=== PATIENT | female | born 1940 | race Caucasian/White ===

== ENCOUNTER → 2017-11-25 09:16 | Outpatient (CLI) | payer MEDICARE, BC, SELFPAY ==
[2017-11-25 13:49] LABS: ALB/GLOB Ratio 0.9 RATIO (0.9-2.4); AST(SGOT) 19 U/L (15-37); Absolute Lymphocyte Count 1.15 X10^3/ul (0.83-4.51); Absolute Neutrophil Count 4.4 X10^3/uL (2.0-7.7); Alanine Aminotransfer ALT/SGPT 25 U/L (13-56); Albumin, Serum 3.2 g/dL (3.2-5.0); Alkaline Phosphatase 77 U/L (45-117); Anion Gap 5 (5-15); BUN 14 mg/dL (7-18); BUN/Creat Ratio 18.8 RATIO (10-20); Basophil# 0.03 X10^3/uL; Basophil% 0.5 % (0-1); Chloride 102 mmol/L (98-107); Creatinine, Serum 0.74 mg/dL (0.55-1.02); EST Glomerular Filtration Rate 80 mL/min (>60); Eosinophils% 1.5 % (0-5); Est Glom Filt Rate - Afr Amer 97 mL/min (>60); Globulin 3.4 g/dL (2.2-4.2); Glucose 62 mg/dL (74-106); Hematocrit 40.9 % (37-47); Hemoglobin 13.1 g/dl (12.0-15.0); Lymphocyte # 1.15 X10^3/ul (4.0); Lymphocyte % 17.8 % (19-41); Mean Corpuscular Hgb 32.7 pg (27.0-32.0); Mean Platelet Vol. 11.4 fl (6.2-12.0); Monocyte# 0.72 X10^3/uL; Monocyte% 11.1 % (0-10); Neutrophil # 4.44 X10^3/uL (2.7-7.7); Neutrophil % 68.8 % (47-70); Platelet Count 223 K/mm3 (150-450); Potassium 4.1 mmol/L (3.5-5.1); Protein, Total 6.6 g/dL (6.4-8.2); RBC Distribution Width CV 13.4 % (11.6-14.6); RBC Distribution Width SD 49.1 fl (35.1-43.9); Red Blood Count 4.01 M/mm3 (4.2-5.4); Sodium Level 140 mmol/L (136-145); Thyroid Stim Hormone (TSH) 2.79 uIU/mL (0.358-3.74); White Blood Count 6.5 K/mm3 (4.4-11.0)
[2017-11-25 13:50] LABS: POSITIVE COUNT NO; POSITIVE DIFFERENTIAL NO; POSITIVE MORPHOLOGY NO
[2017-11-26 10:36] LABS: Vitamin D,25 Hydroxy 21.4 ng/mL (19.95-100.01)
== END ==
PROVIDERS: Family Provider Family Medicine Geriatric Medicine; PCP Family Medicine Geriatric Medicine; Visit Provider Family Medicine Geriatric Medicine
DX: R53.83 Other fatigue (principal); E55.9 Vitamin D deficiency, unspecified
CPT/HCPCS: 36415; 80053; 82306; 84443; 85025

== ENCOUNTER → 2018-05-23 15:14 | Outpatient (CLI) | payer MEDICARE, BC, SELFPAY ==
[2018-05-23 17:59] LABS: Vitamin D,25 Hydroxy 21.4 ng/mL (29.95-100.01)
[2018-05-23 18:30] LABS: Absolute Lymphocyte Count 0.92 X10^3/ul (0.83-4.51); Absolute Neutrophil Count 3.8 X10^3/uL (2.0-7.7); Basophil# 0.02 X10^3/uL; Basophil% 0.4 % (0-1); Eosinophil# 0.12 X10^3/uL; Eosinophils% 2.1 % (0-5); Hematocrit 43.4 % (37-47); Hemoglobin 13.5 g/dl (12.0-15.0); Lymphocyte # 0.92 X10^3/ul (4.0); Lymphocyte % 16.3 % (19-41); Mean Corp Hgb Conc 31.1 g/gl (32-36); Mean Corpuscular Hgb 31.3 pg (27.0-32.0); Mean Corpuscular Volume 100.7 fL (81-99); Mean Platelet Vol. 11.7 fl (6.2-12.0); Monocyte# 0.73 X10^3/uL; Monocyte% 12.9 % (0-10); Neutrophil # 3.84 X10^3/uL (2.7-7.7); Neutrophil % 68.1 % (47-70); Platelet Count 232 K/mm3 (150-450); RBC Distribution Width CV 13.7 % (11.6-14.6); RBC Distribution Width SD 51.3 fl (35.1-43.9); Red Blood Count 4.31 M/mm3 (4.2-5.4); White Blood Count 5.6 K/mm3 (4.4-11.0)
[2018-05-23 18:31] LABS: ALB/GLOB Ratio 0.8 RATIO (0.9-2.4); AST(SGOT) 15 U/L (15-37); Alanine Aminotransfer ALT/SGPT 19 U/L (13-56); Albumin, Serum 3.2 g/dL (3.2-5.0); Alkaline Phosphatase 84 U/L (45-117); Anion Gap 4 (5-15); BUN 17 mg/dL (7-18); Calcium,Total 8.9 mg/dL (8.5-10.1); Chloride 105 mmol/L (98-107); Creatinine, Serum 0.85 mg/dL (0.55-1.02); EST Glomerular Filtration Rate 69 mL/min (>60); Est Glom Filt Rate - Afr Amer 83 mL/min (>60); Glucose 55 mg/dL (74-106); Potassium 4.1 mmol/L (3.5-5.1); Protein, Total 7.2 g/dL (6.4-8.2); Sodium Level 141 mmol/L (136-145); Thyroid Stim Hormone (TSH) 2.03 uIU/mL (0.358-3.74)
[2018-05-23 18:32] LABS: Differential Indicated SCAN CRITERIA MET; POSITIVE COUNT NO; POSITIVE DIFFERENTIAL NO; POSITIVE MORPHOLOGY YES
[2018-05-23 18:46] LABS: Anisocytosis 1+; Macrocytosis 1+; Platelet Estimate ADEQUATE (ADEQ); Platelet Morphology LARGE
== END ==
PROVIDERS: Family Provider Family Medicine Geriatric Medicine; PCP Family Medicine Geriatric Medicine; Visit Provider Family Medicine Geriatric Medicine
DX: R53.83 Other fatigue (principal); E55.9 Vitamin D deficiency, unspecified
CPT/HCPCS: 36415; 80053; 82306; 84443; 85025

== ENCOUNTER → 2018-11-21 10:59 | Outpatient (CLI) | payer MEDICARE, BC, SELFPAY ==
[2018-11-21 12:42] LABS: Absolute Lymphocyte Count 1.09 X10^3/ul (0.83-4.51); Absolute Neutrophil Count 3.9 X10^3/uL (2.0-7.7); Basophil# 0.02 X10^3/uL; Basophil% 0.3 % (0-1); Eosinophil# 0.11 X10^3/uL; Eosinophils% 1.9 % (0-5); Hematocrit 43.9 % (37-47); Hemoglobin 13.6 g/dl (12.0-15.0); Lymphocyte # 1.09 X10^3/ul (4.0); Lymphocyte % 18.8 % (19-41); Mean Corpuscular Hgb 31.5 pg (27.0-32.0); Mean Corpuscular Volume 101.6 fL (81-99); Mean Platelet Vol. 11.4 fl (6.2-12.0); Monocyte# 0.71 X10^3/uL; Monocyte% 12.2 % (0-10); Neutrophil # 3.88 X10^3/uL (2.7-7.7); Neutrophil % 66.8 % (47-70); Platelet Count 256 K/mm3 (150-450); RBC Distribution Width CV 14.1 % (11.6-14.6); RBC Distribution Width SD 52.4 fl (35.1-43.9); Red Blood Count 4.32 M/mm3 (4.2-5.4); White Blood Count 5.8 K/mm3 (4.4-11.0)
[2018-11-21 12:45] LABS: POSITIVE COUNT NO; POSITIVE DIFFERENTIAL NO; POSITIVE MORPHOLOGY NO
[2018-11-21 12:57] LABS: Vitamin D,25 Hydroxy 18.2 ng/mL (29.95-100.01)
[2018-11-21 12:59] LABS: ALB/GLOB Ratio 0.9 RATIO (0.9-2.4); AST(SGOT) 15 U/L (15-37); Alanine Aminotransfer ALT/SGPT 16 U/L (13-56); Albumin, Serum 3.3 g/dL (3.2-5.0); Alkaline Phosphatase 89 U/L (45-117); Anion Gap 5 (5-15); BUN 17 mg/dL (7-18); BUN/Creat Ratio 18.9 RATIO (10-20); Calcium,Total 8.8 mg/dL (8.5-10.1); Chloride 106 mmol/L (98-107); EST Glomerular Filtration Rate 64 mL/min (>60); Est Glom Filt Rate - Afr Amer 78 mL/min (>60); Globulin 3.7 g/dL (2.2-4.2); Glucose 76 mg/dL (74-106); Potassium 4.1 mmol/L (3.5-5.1); Sodium Level 140 mmol/L (136-145); Thyroid Stim Hormone (TSH) 2.76 uIU/mL (0.358-3.74)
== END ==
PROVIDERS: Family Provider Family Medicine Geriatric Medicine; PCP Family Medicine Geriatric Medicine; Visit Provider Family Medicine Geriatric Medicine
DX: R53.83 Other fatigue (principal); E55.9 Vitamin D deficiency, unspecified
CPT/HCPCS: 36415; 80053; 82306; 84443; 85025; J7030

== ENCOUNTER → 2019-05-25 09:44 | Outpatient (CLI) | payer MEDICARE, BC, SELFPAY ==
[2018-07-08 10:32] VITALS: BMI 22.4
[2019-05-25 12:28] LABS: Absolute Lymphocyte Count 1.08 X10^3/uL (0.83-4.51); Absolute Neutrophil Count 4.8 X10^3/uL (2.0-7.7); Basophil# 0.03 X10^3/uL; Basophil% 0.4 % (0-1); Eosinophil# 0.14 X10^3/uL; Eosinophils% 2.1 % (0-5); Hematocrit 44.1 % (37-47); Lymphocyte # 1.08 X10^3/ul (4.0); Lymphocyte % 16.1 % (19-41); Mean Corp Hgb Conc 31.7 g/dL (32-36); Mean Corpuscular Hgb 32.2 pg (27.0-32.0); Mean Corpuscular Volume 101.4 fL (81-99); Mean Platelet Vol. 11.8 fl (6.2-12.0); Monocyte# 0.65 X10^3/uL; Monocyte% 9.7 % (0-10); NRBC Flagged by Analyzer 0 % (0-5); Neutrophil # 4.78 X10^3/uL (2.7-7.7); Neutrophil % 71.4 % (47-70); Platelet Count 242 K/mm3 (150-450); RBC Distribution Width CV 13.2 % (11.6-14.6); RBC Distribution Width SD 49.6 fl (35.1-43.9); Red Blood Count 4.35 M/mm3 (4.2-5.4); White Blood Count 6.7 K/mm3 (4.4-11.0)
[2019-05-25 12:57] LABS: ALB/GLOB Ratio 0.8 RATIO (0.9-2.4); AST(SGOT) 13 U/L (15-37); Alanine Aminotransfer ALT/SGPT 19 U/L (13-56); Albumin, Serum 3.3 g/dL (3.2-5.0); Alkaline Phosphatase 95 U/L (45-117); Anion Gap 5 (5-15); BUN 14 mg/dL (7-18); BUN/Creat Ratio 15.1 RATIO (10-20); Chloride 104 mmol/L (98-107); Creatinine, Serum 0.93 mg/dL (0.55-1.02); EST Glomerular Filtration Rate 62 mL/min (>60); Est Glom Filt Rate - Afr Amer 75 mL/min (>60); Globulin 3.9 g/dL (2.2-4.2); Glucose 74 mg/dL (74-106); Potassium 4.6 mmol/L (3.5-5.1); Protein, Total 7.2 g/dL (6.4-8.2); Sodium Level 140 mmol/L (136-145); Thyroid Stim Hormone (TSH) 2.31 uIU/mL (0.358-3.74)
== END ==
PROVIDERS: Family Provider Family Medicine Geriatric Medicine; PCP Family Medicine Geriatric Medicine; Visit Provider Family Medicine Geriatric Medicine
DX: R53.83 Other fatigue (principal); E55.9 Vitamin D deficiency, unspecified
CPT/HCPCS: 36415; 80053; 82306; 84443; 85025

== ENCOUNTER → 2019-11-23 11:27 | Outpatient (CLI) | payer MEDICARE, BC, SELFPAY ==
[2019-08-10 08:14] VITALS: BMI 23.1
[2019-11-23 12:29] LABS: Absolute Lymphocyte Count 0.94 X10^3/uL (0.83-4.51); Absolute Neutrophil Count 4.7 X10^3/uL (2.0-7.7); Basophil# 0.03 X10^3/uL; Basophil% 0.5 % (0-1); Eosinophil# 0.15 X10^3/uL; Eosinophils% 2.3 % (0-5); Hematocrit 40.6 % (37-47); Hemoglobin 12.8 g/dL (12.0-15.0); Lymphocyte # 0.94 X10^3/ul (4.0); Lymphocyte % 14.2 % (19-41); Mean Corp Hgb Conc 31.5 g/dL (32-36); Mean Corpuscular Hgb 31.8 pg (27.0-32.0); Mean Platelet Vol. 11.6 fl (6.2-12.0); Monocyte# 0.74 X10^3/uL; Monocyte% 11.2 % (0-10); NRBC Flagged by Analyzer 0 % (0-5); Neutrophil # 4.74 X10^3/uL (2.7-7.7); Neutrophil % 71.3 % (47-70); Platelet Count 251 K/mm3 (150-450); RBC Distribution Width CV 13.7 % (11.6-14.6); RBC Distribution Width SD 51.9 fl (35.1-43.9); Red Blood Count 4.02 M/mm3 (4.2-5.4); White Blood Count 6.6 K/mm3 (4.4-11.0)
[2019-11-23 12:39] LABS: Vitamin D,25 Hydroxy 21.5 ng/mL (29.95-100.01)
[2019-11-23 12:46] LABS: ALB/GLOB Ratio 0.9 RATIO (0.9-2.4); AST(SGOT) 19 U/L (15-37); Alanine Aminotransfer ALT/SGPT 22 U/L (13-56); Albumin, Serum 3.2 g/dL (3.2-5.0); Alkaline Phosphatase 91 U/L (45-117); Anion Gap 3 (5-15); BUN 16 mg/dL (7-18); BUN/Creat Ratio 18.6 RATIO (10-20); Calcium,Total 8.9 mg/dL (8.5-10.1); Chloride 108 mmol/L (98-107); Creatinine, Serum 0.86 mg/dL (0.55-1.02); EST Glomerular Filtration Rate 67 mL/min (>60); Est Glom Filt Rate - Afr Amer 81 mL/min (>60); Globulin 3.7 g/dL (2.2-4.2); Glucose 63 mg/dL (74-106); Potassium 4.4 mmol/L (3.5-5.1); Protein, Total 6.9 g/dL (6.4-8.2); Sodium Level 142 mmol/L (136-145); Thyroid Stim Hormone (TSH) 2.25 uIU/mL (0.358-3.74)
== END ==
PROVIDERS: PCP Family Medicine Geriatric Medicine; Visit Provider Family Medicine Geriatric Medicine
DX: E55.9 Vitamin D deficiency, unspecified (principal); R53.83 Other fatigue
CPT/HCPCS: 36415; 80053; 82306; 84443; 85025

== ENCOUNTER → 2020-05-27 10:53 | Outpatient (CLI) | payer MEDICARE, BC, SELFPAY ==
[2019-08-10 08:14] VITALS: BMI 23.1
[2020-05-27 12:33] LABS: Absolute Lymphocyte Count 1.06 X10^3/uL (0.83-4.51); Absolute Neutrophil Count 4.6 X10^3/uL (2.0-7.7); Basophil# 0.03 X10^3/uL; Basophil% 0.5 % (0-1); Eosinophil# 0.11 X10^3/uL; Eosinophils% 1.7 % (0-5); Hematocrit 40.9 % (37-47); Hemoglobin 13.3 g/dL (12.0-15.0); Lymphocyte # 1.06 X10^3/ul (4.0); Mean Corp Hgb Conc 32.5 g/dL (32-36); Mean Corpuscular Hgb 31.4 pg (27.0-32.0); Mean Corpuscular Volume 96.7 fL (81-99); Mean Platelet Vol. 11.7 fl (6.2-12.0); Monocyte# 0.78 X10^3/uL; Monocyte% 11.8 % (0-10); NRBC Flagged by Analyzer 0 % (0-5); Neutrophil # 4.61 X10^3/uL (2.7-7.7); Neutrophil % 69.7 % (47-70); Platelet Count 250 K/mm3 (150-450); RBC Distribution Width CV 14.6 % (11.6-14.6); RBC Distribution Width SD 51.4 fl (35.1-43.9); Red Blood Count 4.23 M/mm3 (4.2-5.4); White Blood Count 6.6 K/mm3 (4.4-11.0)
[2020-05-27 12:45] LABS: Vitamin D,25 Hydroxy 28.7 ng/mL
[2020-05-27 13:00] LABS: ALB/GLOB Ratio 0.8 RATIO (0.9-2.4); AST(SGOT) 15 U/L (15-37); Alanine Aminotransfer ALT/SGPT 17 U/L (13-56); Albumin, Serum 3.2 g/dL (3.2-5.0); Alkaline Phosphatase 96 U/L (45-117); Anion Gap 3 (5-15); BUN 16 mg/dL (7-18); BUN/Creat Ratio 16.5 RATIO (10-20); Calcium,Total 8.8 mg/dL (8.5-10.1); Chloride 104 mmol/L (98-107); Creatinine, Serum 0.97 mg/dL (0.55-1.02); EST Glomerular Filtration Rate 59 mL/min (>60); Est Glom Filt Rate - Afr Amer 71 mL/min (>60); Globulin 3.8 g/dL (2.2-4.2); Glucose 93 mg/dL (74-106); Potassium 4.2 mmol/L (3.5-5.1); Sodium Level 138 mmol/L (136-145); Thyroid Stim Hormone (TSH) 2.69 uIU/mL (0.358-3.74)
== END ==
PROVIDERS: PCP Family Medicine Geriatric Medicine; Visit Provider Family Medicine Geriatric Medicine
DX: R53.83 Other fatigue (principal); E55.9 Vitamin D deficiency, unspecified
CPT/HCPCS: 36415; 80053; 82306; 84443; 85025

== ENCOUNTER → 2020-11-25 10:38 | Outpatient (CLI) | payer MEDICARE, BC, SELFPAY ==
[2020-08-08 09:54] VITALS: BMI 24.0
[2020-11-25 11:05] LABS: Absolute Neutrophil Count 4.6 X10^3/uL (2.0-7.7); Basophil# 0.04 X10^3/uL; Basophil% 0.6 % (0-1); Eosinophil# 0.09 X10^3/uL; Eosinophils% 1.4 % (0-5); Hematocrit 36.1 % (37-47); Hemoglobin 10.9 g/dL (12.0-15.0); Lymphocyte % 12.8 % (19-41); Mean Corp Hgb Conc 30.2 g/dL (32-36); Mean Corpuscular Hgb 28.5 pg (27.0-32.0); Mean Corpuscular Volume 94.5 fL (81-99); Mean Platelet Vol. 10.7 fl (6.2-12.0); Monocyte% 11.2 % (0-10); NRBC Flagged by Analyzer 0 % (0-5); Neutrophil # 4.59 X10^3/uL (2.7-7.7); Neutrophil % 73.7 % (47-70); Platelet Count 283 K/mm3 (150-450); RBC Distribution Width CV 14.6 % (11.6-14.6); RBC Distribution Width SD 50.3 fl (35.1-43.9); Red Blood Count 3.82 M/mm3 (4.2-5.4); White Blood Count 6.2 K/mm3 (4.4-11.0)
[2020-11-25 11:33] LABS: Vitamin D,25 Hydroxy 16.1 ng/mL
[2020-11-25 11:46] LABS: ALB/GLOB Ratio 0.8 RATIO (0.9-2.4); AST(SGOT) 16 U/L (15-37); Alanine Aminotransfer ALT/SGPT 17 U/L (13-56); Albumin, Serum 3.2 g/dL (3.2-5.0); Alkaline Phosphatase 95 U/L (45-117); Anion Gap 3 (5-15); BUN 21 mg/dL (7-18); BUN/Creat Ratio 25.4 RATIO (10-20); Calcium,Total 8.9 mg/dL (8.5-10.1); Chloride 106 mmol/L (98-107); Creatinine, Serum 0.83 mg/dL (0.55-1.02); EST Glomerular Filtration Rate 70 mL/min (>60); Est Glom Filt Rate - Afr Amer 85 mL/min (>60); Globulin 3.8 g/dL (2.2-4.2); Glucose 83 mg/dL (74-106); Potassium 4.3 mmol/L (3.5-5.1); Sodium Level 140 mmol/L (136-145)
== END ==
PROVIDERS: PCP Family Medicine Geriatric Medicine; Visit Provider Family Medicine Geriatric Medicine
DX: E55.9 Vitamin D deficiency, unspecified (principal); R53.83 Other fatigue
CPT/HCPCS: 36415; 80053; 82306; 84443; 85025

== ENCOUNTER → 2020-12-03 11:51 | Outpatient (CLI) | payer MEDICARE, BC, SELFPAY ==
[2020-08-08 09:54] VITALS: BMI 24.0
[2020-12-03 12:28] LABS: Absolute Lymphocyte Count 0.79 X10^3/uL (0.83-4.51); Absolute Neutrophil Count 4.4 X10^3/uL (2.0-7.7); Basophil# 0.03 X10^3/uL; Basophil% 0.5 % (0-1); Eosinophil# 0.11 X10^3/uL; Eosinophils% 1.9 % (0-5); Hematocrit 35.6 % (37-47); Hemoglobin 10.5 g/dL (12.0-15.0); Lymphocyte # 0.79 X10^3/ul (4.0); Lymphocyte % 13.4 % (19-41); Mean Corp Hgb Conc 29.5 g/dL (32-36); Mean Corpuscular Hgb 28.3 pg (27.0-32.0); Mean Platelet Vol. 10.8 fl (6.2-12.0); Monocyte# 0.57 X10^3/uL; Monocyte% 9.7 % (0-10); NRBC Flagged by Analyzer 0 % (0-5); Neutrophil # 4.35 X10^3/uL (2.7-7.7); Platelet Count 264 K/mm3 (150-450); RBC Distribution Width SD 51.9 fl (35.1-43.9); RET-HE 28.9 pg (30-35); Red Blood Count 3.71 M/mm3 (4.2-5.4); Reticulocyte Count 1.89 % (0.5-1.5); White Blood Count 5.9 K/mm3 (4.4-11.0)
[2020-12-03 12:58] LABS: Vitamin B12 491 pg/mL (211-911)
[2020-12-03 13:42] LABS: Ferritin 7 ng/mL (8-252); Iron 75 ug/dL (50-170); Iron Binding Capacity,Total 429 ug/dL (250-450)
== END ==
PROVIDERS: PCP Family Medicine Geriatric Medicine; Visit Provider Family Medicine Geriatric Medicine
DX: D50.9 Iron deficiency anemia, unspecified (principal)
CPT/HCPCS: 36415; 82607; 82728; 82746; 83540; 83550; 85025; 85045

== ENCOUNTER → 2020-12-05 11:19 | Outpatient (CLI) | payer MEDICARE, BC, SELFPAY ==
[2020-08-08 09:54] VITALS: BMI 24.0
== END ==
PROVIDERS: PCP Family Medicine Geriatric Medicine; Referring Provider Family Medicine Geriatric Medicine; Visit Provider Family Medicine Geriatric Medicine
DX: D50.9 Iron deficiency anemia, unspecified (principal)
CPT/HCPCS: 82274; 83630; 87177; 87209

== ENCOUNTER → 2021-05-28 11:44 | Outpatient (CLI) | payer MEDICARE, BC, SELFPAY ==
[2021-05-28 12:46] LABS: Absolute Lymphocyte Count 2.23 X10^3/uL (0.83-4.51); Absolute Neutrophil Count 5.7 X10^3/uL (2.0-7.7); Basophil# 0.05 X10^3/uL; Basophil% 0.6 % (0-1); Eosinophils% 2.2 % (0-5); Hematocrit 44.6 % (37-47); Hemoglobin 14.5 g/dL (12.0-15.0); Lymphocyte # 2.23 X10^3/ul (0.83-4.51); Lymphocyte % 24.9 % (19-41); Mean Corp Hgb Conc 32.5 g/dL (32-36); Mean Corpuscular Hgb 29.1 pg (27.0-32.0); Mean Corpuscular Volume 89.4 fL (81-99); Mean Platelet Vol. 11.1 fl (6.2-12.0); Monocyte# 0.71 X10^3/uL; Monocyte% 7.9 % (0-10); NRBC Flagged by Analyzer 0 % (0-5); Neutrophil # 5.72 X10^3/uL (2.7-7.7); Neutrophil % 63.8 % (47-70); Platelet Count 214 K/mm3 (150-450); RBC Distribution Width CV 13.5 % (11.6-14.6); RBC Distribution Width SD 44.4 fl (35.1-43.9); Red Blood Count 4.99 M/mm3 (4.2-5.4)
[2021-05-28 13:04] LABS: Vitamin D,25 Hydroxy 32.7 ng/mL
[2021-05-28 13:21] LABS: ALB/GLOB Ratio 0.8 RATIO (0.9-2.4); AST(SGOT) 20 U/L (15-37); Alanine Aminotransfer ALT/SGPT 24 U/L (13-56); Albumin, Serum 3.1 g/dL (3.2-5.0); Alkaline Phosphatase 90 U/L (45-117); Anion Gap 2 (5-15); BUN 16 mg/dL (7-18); Calcium,Total 9.4 mg/dL (8.5-10.1); Chloride 104 mmol/L (98-107); EST Glomerular Filtration Rate 73 mL/min (>60); Est Glom Filt Rate - Afr Amer 88 mL/min (>60); Globulin 3.9 g/dL (2.2-4.2); Glucose 85 mg/dL (74-106); Potassium 4.4 mmol/L (3.5-5.1); Sodium Level 139 mmol/L (136-145); Thyroid Stim Hormone (TSH) 2.28 uIU/mL (0.358-3.74)
== END ==
PROVIDERS: PCP Family Medicine Geriatric Medicine; Visit Provider Family Medicine Geriatric Medicine
DX: E55.9 Vitamin D deficiency, unspecified (principal); R53.83 Other fatigue
CPT/HCPCS: 36415; 80053; 82306; 84443; 85025

== ENCOUNTER 2021-11-26 10:50 | Outpatient (CLI) | payer MEDICARE, BC, SELFPAY ==
[2021-11-26 12:41] LABS: Absolute Lymphocyte Count 0.91 X10^3/uL (0.83-4.51); Absolute Neutrophil Count 4.6 X10^3/uL (2.0-7.7); Basophil# 0.04 X10^3/uL; Basophil% 0.6 % (0-1); Eosinophil# 0.09 X10^3/uL; Eosinophils% 1.4 % (0-5); Hematocrit 42.2 % (37-47); Hemoglobin 13.5 g/dL (12.0-15.0); Lymphocyte # 0.91 X10^3/ul (0.83-4.51); Lymphocyte % 14.4 % (19-41); Mean Corpuscular Hgb 32.3 pg (27.0-32.0); Mean Platelet Vol. 11.6 fl (6.2-12.0); Monocyte# 0.73 X10^3/uL; Monocyte% 11.5 % (0-10); NRBC Flagged by Analyzer 0 % (0-5); Neutrophil # 4.55 X10^3/uL (2.7-7.7); Neutrophil % 71.8 % (47-70); Platelet Count 246 K/mm3 (150-450); RBC Distribution Width CV 13.7 % (11.6-14.6); RBC Distribution Width SD 50.6 fl (35.1-43.9); Red Blood Count 4.18 M/mm3 (4.2-5.4); White Blood Count 6.3 K/mm3 (4.4-11.0)
[2021-11-26 12:51] LABS: Vitamin D,25 Hydroxy 24.8 ng/mL
[2021-11-26 13:07] LABS: ALB/GLOB Ratio 0.8 RATIO (0.9-2.4); AST(SGOT) 18 U/L (15-37); Alanine Aminotransfer ALT/SGPT 19 U/L (13-56); Albumin, Serum 3.1 g/dL (3.2-5.0); Alkaline Phosphatase 85 U/L (45-117); Anion Gap 4 (5-15); BUN 16 mg/dL (7-18); BUN/Creat Ratio 17.4 RATIO (10-20); Chloride 105 mmol/L (98-107); Creatinine, Serum 0.92 mg/dL (0.55-1.02); EST Glomerular Filtration Rate 62 mL/min (>60); Est Glom Filt Rate - Afr Amer 75 mL/min (>60); Globulin 3.7 g/dL (2.2-4.2); Glucose 84 mg/dL (74-106); Potassium 3.8 mmol/L (3.5-5.1); Protein, Total 6.8 g/dL (6.4-8.2); Sodium Level 141 mmol/L (136-145); Thyroid Stim Hormone (TSH) 2.07 uIU/mL (0.358-3.74)
== END 2021-11-26 23:59 | disposition home or self-care (01) ==
LOC: POLAB3 10:52
PROVIDERS: PCP Family Medicine Geriatric Medicine; Visit Provider Family Medicine Geriatric Medicine
DX: E55.9 Vitamin D deficiency, unspecified (principal); R53.83 Other fatigue
CPT/HCPCS: 36415; 80053; 82306; 84443; 85025

== ENCOUNTER → 2022-06-03 | Outpatient (CLI) | payer MEDICARE, BC, SELFPAY ==
[2022-06-03 12:34] LABS: Absolute Neutrophil Count 5.1 X10^3/uL (2.0-7.7); Basophil# 0.04 X10^3/uL; Basophil% 0.6 % (0-1); Eosinophil# 0.11 X10^3/uL; Eosinophils% 1.5 % (0-5); Hematocrit 39.7 % (37-47); Hemoglobin 12.8 g/dL (12.0-15.0); Lymphocyte % 13.9 % (19-41); Mean Corp Hgb Conc 32.2 g/dL (32-36); Mean Corpuscular Hgb 31.9 pg (27.0-32.0); Mean Platelet Vol. 11.4 fl (6.2-12.0); Monocyte# 0.93 X10^3/uL; Monocyte% 12.9 % (0-10); NRBC Flagged by Analyzer 0 % (0-5); Neutrophil # 5.12 X10^3/uL (2.7-7.7); Neutrophil % 70.8 % (47-70); Platelet Count 268 K/mm3 (150-450); RBC Distribution Width CV 14.2 % (11.6-14.6); Red Blood Count 4.01 M/mm3 (4.2-5.4); White Blood Count 7.2 K/mm3 (4.4-11.0)
[2022-06-03 12:48] LABS: Vitamin D,25 Hydroxy 26.2 ng/mL
[2022-06-03 13:07] LABS: ALB/GLOB Ratio 0.8 RATIO (0.9-2.4); AST(SGOT) 18 U/L (15-37); Alanine Aminotransfer ALT/SGPT 18 U/L (13-56); Albumin, Serum 3.1 g/dL (3.2-5.0); Alkaline Phosphatase 89 U/L (45-117); Anion Gap 6 (5-15); BUN 16 mg/dL (7-18); BUN/Creat Ratio 18.2 RATIO (10-20); Chloride 105 mmol/L (98-107); Creatinine, Serum 0.88 mg/dL (0.55-1.02); EST Glomerular Filtration Rate 65 mL/min (>60); Est Glom Filt Rate - Afr Amer 79 mL/min (>60); Globulin 3.9 g/dL (2.2-4.2); Glucose 89 mg/dL (74-106); Sodium Level 140 mmol/L (136-145)
== END | disposition home or self-care (01) ==
LOC: POLAB3 09:21
PROVIDERS: PCP Family Medicine Geriatric Medicine; Visit Provider Family Medicine Geriatric Medicine
DX: R53.83 Other fatigue (principal); E55.9 Vitamin D deficiency, unspecified
CPT/HCPCS: 36415; 80053; 82306; 84443; 85025

== ENCOUNTER → 2022-12-02 | Outpatient (CLI) | payer MEDICARE, BC, SELFPAY ==
[2022-12-02 13:22] LABS: Vitamin D,25 Hydroxy 18.9 ng/mL
[2022-12-02 13:32] LABS: ALB/GLOB Ratio 0.8 RATIO (0.9-2.4); AST(SGOT) 19 U/L (15-37); Alanine Aminotransfer ALT/SGPT 18 U/L (13-56); Albumin, Serum 3.3 g/dL (3.2-5.0); Alkaline Phosphatase 92 U/L (45-117); Anion Gap 7 (5-15); BUN 18 mg/dL (7-18); BUN/Creat Ratio 20.1 RATIO (10-20); Calcium,Total 9.1 mg/dL (8.5-10.1); Chloride 104 mmol/L (98-107); EST Glomerular Filtration Rate 64 mL/min (>60); Est Glom Filt Rate - Afr Amer 77 mL/min (>60); Globulin 3.9 g/dL (2.2-4.2); Glucose 93 mg/dL (74-106); Potassium 3.8 mmol/L (3.5-5.1); Protein, Total 7.2 g/dL (6.4-8.2); Sodium Level 142 mmol/L (136-145); Thyroid Stim Hormone (TSH) 2.44 uIU/mL (0.358-3.74)
[2022-12-02 16:26] LABS: Absolute Lymphocyte Count 0.76 X10^3/uL (0.83-4.51); Absolute Neutrophil Count 5.1 X10^3/uL (2.0-7.7); Basophil# 0.03 X10^3/uL; Basophil% 0.5 % (0-1); Eosinophils% 1.5 % (0-5); Hematocrit 36.3 % (37-47); Hemoglobin 11.5 g/dL (12.0-15.0); Lymphocyte # 0.76 X10^3/ul (0.83-4.51); Lymphocyte % 11.5 % (19-41); Mean Corp Hgb Conc 31.7 g/dL (32-36); Mean Corpuscular Volume 91.4 fL (81-99); Mean Platelet Vol. 11.6 fl (6.2-12.0); Monocyte# 0.63 X10^3/uL; Monocyte% 9.5 % (0-10); NRBC Flagged by Analyzer 0 % (0-5); Neutrophil # 5.07 X10^3/uL (2.7-7.7); Neutrophil % 76.7 % (47-70); Platelet Count 296 K/mm3 (150-450); RBC Distribution Width CV 15.3 % (11.6-14.6); RBC Distribution Width SD 50.4 fl (35.1-43.9); Red Blood Count 3.97 M/mm3 (4.2-5.4); White Blood Count 6.6 K/mm3 (4.4-11.0)
== END | disposition home or self-care (01) ==
LOC: POLAB3 09:39
PROVIDERS: PCP Family Medicine Geriatric Medicine; Visit Provider Family Medicine Geriatric Medicine
DX: E55.9 Vitamin D deficiency, unspecified (principal); R53.83 Other fatigue
CPT/HCPCS: 36415; 80053; 82306; 84443; 85025

== ENCOUNTER → 2023-06-16 | Outpatient (CLI) | payer MEDICARE, BC, SELFPAY ==
[2023-06-16 11:53] LABS: Absolute Lymphocyte Count 0.73 X10^3/uL (0.83-4.51); Absolute Neutrophil Count 5.3 X10^3/uL (2.0-7.7); Basophil# 0.04 X10^3/uL; Basophil% 0.6 % (0-1); Eosinophil# 0.07 X10^3/uL; Hematocrit 36.4 % (37-47); Hemoglobin 10.7 g/dL (12.0-15.0); Lymphocyte # 0.73 X10^3/ul (0.83-4.51); Lymphocyte % 10.6 % (19-41); Mean Corp Hgb Conc 29.4 g/dL (32-36); Mean Corpuscular Hgb 26.3 pg (27.0-32.0); Mean Corpuscular Volume 89.4 fL (81-99); Mean Platelet Vol. 11.3 fl (6.2-12.0); Monocyte# 0.72 X10^3/uL; Monocyte% 10.4 % (0-10); NRBC Flagged by Analyzer 0 % (0-5); Platelet Count 269 K/mm3 (150-450); RBC Distribution Width SD 61.4 fl (35.1-43.9); Red Blood Count 4.07 M/mm3 (4.2-5.4); White Blood Count 6.9 K/mm3 (4.4-11.0)
[2023-06-16 12:18] LABS: ALB/GLOB Ratio 0.8 RATIO (0.9-2.4); AST(SGOT) 10 U/L (15-37); Alanine Aminotransfer ALT/SGPT 15 U/L (13-56); Albumin, Serum 3.1 g/dL (3.2-5.0); Alkaline Phosphatase 92 U/L (45-117); Anion Gap 2 (5-15); BUN 17 mg/dL (7-18); BUN/Creat Ratio 22.2 RATIO (10-20); Calcium,Total 8.7 mg/dL (8.5-10.1); Chloride 105 mmol/L (98-107); Creatinine, Serum 0.76 mg/dL (0.55-1.02); EST Glomerular Filtration Rate 77 mL/min (>60); Est Glom Filt Rate - Afr Amer 93 mL/min (>60); Globulin 3.8 g/dL (2.2-4.2); Glucose 105 mg/dL (74-106); Protein, Total 6.9 g/dL (6.4-8.2); Sodium Level 139 mmol/L (136-145); Thyroid Stim Hormone (TSH) 2.13 uIU/mL (0.358-3.74)
== END | disposition home or self-care (01) ==
LOC: POLAB3 11:15
PROVIDERS: PCP Family Medicine Geriatric Medicine; Visit Provider Family Medicine Geriatric Medicine
DX: R53.83 Other fatigue (principal); E55.9 Vitamin D deficiency, unspecified
CPT/HCPCS: 36415; 80053; 82306; 84443; 85025

== ENCOUNTER → 2023-07-14 | Outpatient (CLI) | payer MEDICARE, BC, SELFPAY ==
[2023-07-14 12:46] LABS: Absolute Neutrophil Count 5.1 X10^3/uL (2.0-7.7); Basophil# 0.04 X10^3/uL; Basophil% 0.6 % (0-1); Differential Indicated SCAN CRITERIA MET; Eosinophil# 0.04 X10^3/uL; Eosinophils% 0.6 % (0-5); Hemoglobin 11.6 g/dL (12.0-15.0); Lymphocyte % 9.4 % (19-41); Mean Corp Hgb Conc 29.7 g/dL (32-36); Mean Corpuscular Hgb 26.4 pg (27.0-32.0); Mean Corpuscular Volume 88.8 fL (81-99); Mean Platelet Vol. 11.8 fl (6.2-12.0); Monocyte# 0.57 X10^3/uL; Monocyte% 8.9 % (0-10); NRBC Flagged by Analyzer 0 % (0-5); Neutrophil # 5.14 X10^3/uL (2.7-7.7); Neutrophil % 80.2 % (47-70); POSITIVE DIFFERENTIAL YES; Platelet Count 262 K/mm3 (150-450); RBC Distribution Width CV 18.4 % (11.6-14.6); RBC Distribution Width SD 59.7 fl (35.1-43.9); RET-HE 29.8 pg (30-35); Red Blood Count 4.39 M/mm3 (4.2-5.4); Reticulocyte Count 1.51 % (0.5-1.5); White Blood Count 6.4 K/mm3 (4.4-11.0)
[2023-07-14 13:15] LABS: Ferritin 8 ng/mL (8-252); Iron 41 ug/dL (50-170); Iron Binding Capacity,Total 484 ug/dL (250-450)
[2023-07-14 13:18] LABS: Vitamin B12 332 pg/mL (211-911)
== END | disposition home or self-care (01) ==
PROVIDERS: PCP Family Medicine Geriatric Medicine; Visit Provider Family Medicine Geriatric Medicine
DX: D50.9 Iron deficiency anemia, unspecified (principal)
CPT/HCPCS: 36415; 82607; 82728; 82746; 83540; 83550; 85025; 85045

== ENCOUNTER → 2023-07-19 | Outpatient (CLI) | payer MEDICARE, BC, SELFPAY | END | disposition home or self-care (01) | LOC: LAB 11:21 | PROVIDERS: PCP Family Medicine Geriatric Medicine; Referring Provider Family Medicine Geriatric Medicine; Visit Provider Family Medicine Geriatric Medicine | DX: D64.9 Anemia, unspecified (principal) | CPT/HCPCS: 82274 ==

== ENCOUNTER → 2023-07-30 | Outpatient (CLI) | payer MEDICARE, BC, SELFPAY ==
[2023-07-30 16:19] LABS: Hemoglobin 11.9 g/dL (12.0-15.0)
== END | disposition home or self-care (01) ==
LOC: LAB 14:39
PROVIDERS: PCP Family Medicine Geriatric Medicine; Referring Provider Family Medicine Geriatric Medicine; Visit Provider Family Medicine Geriatric Medicine
DX: D50.9 Iron deficiency anemia, unspecified (principal)
CPT/HCPCS: 36415; 85014; 85018

== ENCOUNTER 2023-09-10 09:27 | Day surgery (SDC) | payer MEDICARE, BC, SELFPAY ==
[2023-09-10 09:51] VITALS: BP 123/71; PULSE 87; RESP 18; TEMP 36.5; O2SAT 98; BMI 22.6
[2023-09-10] MEDS: Lactated Ringers 1,000 ML 15 ML IV (10:02)
--- NOTE | 2023-09-10 10:44 | PCM.HP.BLA ---
History and Physical Date of Admission: 09/10/23 Intake Vital Signs 09/11/2110:48 07/28/2315:05 Height 5 ft 4 in 5 ft 4 in Weight: 136 lb 4 oz BMI 23.3 BP 159/75 H Blood Pressure Location Rt brachial Position Sitting Respiration 17 Pulse 71 Pulse Source NIBP Temp 98.6 F Temp Source Temporal Pulse Oximetry (%) 96 Oxygen Delivery Method room air Intake Visit Reasons: ANEMIA & BLOOD IN STOOL Chief Complaint: anemia Loom Tuner Required: No Is patient in pain?: No Allergies bee venom protein (honey bee) Allergy (Verified 07/28/23 15:06) Anaphylaxis Medications multivitamin 1 tab PO DAILY 05/13/17 [History Confirmed 07/28/23] aspirin 81 mg tablet,delayed release ([place] Low Dose Aspirin) 81 mg PO DAILY 06/06/20 [History Confirmed 07/28/23] polysaccharide iron complex 150 mg iron capsule 150 mg PO DAILY 09/11/21 [History Confirmed 07/28/23] metoprolol tartrate 50 mg tablet 50 mg PO BID #180 tabs 04/29/23 [Rx Confirmed 07/28/23] mv-mn-folic 200 mcg-vit K 15 mcg-lutein 5 mg-zeaxanthin 1 mg capsule (PreserVision AREDS 2 Plus Multivit) cap PO 07/28/23 [History Confirmed 07/28/23] Is last menstrual period known: No Post menopausal: Yes Patient : No PFSH Medical History Atrial fibrillation with rapid ventricular response (05/2017) Contact dermatitis COPD (chronic obstructive pulmonary disease) Diastolic dysfunction Hypoxia Nicotine dependence in remission Nonrheumatic tricuspid (valve) insufficiency On home oxygen therapy Pneumonia Secondary pulmonary arterial hypertension Sepsis Surgical History History of cataract surgery Family History Mother Heart diseaseBrother CAD (coronary artery disease) Social History Smoking Status: Former smoker how long ago did patient quit smokin alcohol intake: current alcohol intake frequency: holidays/special occasions only Alcohol type: wine substance use type: does not use caffeine: No what type of physical activity do you participate in: walking frequency: 3-4 times per week duration: 30-45 minutes/day seatbelt use: always do you feel safe at home: Yes HPI HPI HPI: Patient is an 82-year-old female here with iron deficiency anemia. Patient notes that her stools been black but she has not seen any gross blood in her stool. She has never had an EGD or colonoscopy. She denies any abdominal pain. ROS General General: No weight change, appetite, fatigue, colon cancer, breast cancer or weakness HEENT HEENT: Yes eye surgery; No difficulty swallowing, eye injury, swollen glands or hoarseness Endo Endocrine: No thyroid disease, diabetes mellitus, thyroid cancer, Hair loss, heat intolerance or cold intolerance Musc Musculoskeletal: No back problems, arthritis, rheumatoid arthritis, gout or joint pain Cardio Cardiovascular: No murmur, pacemaker, heart disease, atrial fibrillation, high blood pressure, heart attack, heart stent, palpitations, shortness of breat with exertion or chest pain Psych Psychiatric: No depression, anxiety or hearing voices Resp Respiratory: No shortness of breath, No sleep apnea, No cough, Yes COPD, No asthma, No emphysema and No wheezing Gastro Gastrointestinal: No abdominal pain, No nausea or vomiting, No diarrhea, No constipation, Yes blood in stool, No acid reflux, No hemorrhoids, No ulcers, No gallbladder problem and Yes black,tarry stools Geo Hematologic: No blood thinners, No blood disorders, No bleeding, No anemia and No blood clots Neuro Neurologic: No weakness Exam Const General: cooperative Orientation: alert and oriented x3 HENMT Head: normal to inspection Neck Neck: normal visual inspection and full ROM Chest Chest palpation & inspection: normal inspection of the chest Resp Effort & Inspection: normal respiratory effort Auscultation: clear to auscultation bilaterally Cardio Rate: regular rate Rhythm: regular rhythm GI Inspection: non-distended Palpation: soft and nontender Skin General: no rashes or lesions noted Neuro General: patient alert and patient oriented x3 Extrem General: full ROM Psych Appearance: grossly normal Mental Status: mental status grossly normal Assessment and Plan Assessment and Plan (1) Iron deficiency anemia: Status: Acute Qualifiers: Iron deficiency anemia type: unspecified iron deficiency Qualified Code(s): D50.9 - Iron deficiency anemia, unspecified Plan: I explained endoscopy in detail to the patient. I explained the risks including but not limited to stroke or heart attack with anesthesia, perforation of the GI tract, bleeding, infection. I explained that any of these could necessitate further emergency surgery. The patient understands and all questions were answered sufficiently. The patient wishes to proceed with procedure. Devin Tilley MD Pager: [facility] [address] [place] [address], [address] [place] [address] Office: I have examined the patient and the H&P has been reviewed. There are no clinical changes since date of exam.
--- NOTE | 2023-09-10 11:26 | OP.EGD_ITS ---
Patient Name: Nidhi Huang Procedure Date: 09/10/2023 10:48 AM Date of : 1940 Age: 82 Procedure: Upper GI endoscopy Indications: Iron deficiency anemia Providers: Devin Tilley MD Medicines: Monitored Anesthesia Care Patient Profile: This is an 82 year old female. Refer to note in patient chart for documentation of history and physical. Complications: No immediate complications. Procedure: Pre-Anesthesia Assessment: - Prior to the procedure, a History and Physical was performed, and patient medications and allergies were reviewed. The patient's tolerance of previous anesthesia was also reviewed. The risks and benefits of the procedure and the sedation options and risks were discussed with the patient. All questions were answered, and informed consent was obtained. Prior Anticoagulants: The patient has taken no anticoagulant or antiplatelet agents. After reviewing the risks and benefits, the patient was deemed in satisfactory condition to undergo the procedure. After obtaining informed consent, the endoscope was passed under direct vision. Throughout the procedure, the patient's blood pressure, pulse, and oxygen saturations were monitored continuously. The Endoscope was introduced through the mouth, and advanced to the fourth part of duodenum. The upper GI endoscopy was accomplished without difficulty. The patient tolerated the procedure well. Scope In: 10:59:08 AM Scope Out: 11:00:57 AM Total Procedure Duration Time 0 hours 1 minute 49 seconds Findings: The esophagus was normal. The stomach was normal. The examined duodenum was normal. Impression: - Normal esophagus. - Normal stomach. - Normal examined duodenum. - No specimens collected. Recommendation: - Discharge patient to home. - Resume previous diet. - Continue present medications. Procedure Code(s): --- Professional --- 65404, Esophagogastroduodenoscopy, flexible, transoral; diagnostic, including collection of specimen(s) by brushing or washing, when performed (separate procedure) Diagnosis Code(s): --- Professional --- D50.9, Iron deficiency anemia, unspecified CPT copyright 2021 [employer]. All rights reserved. The codes documented in this report are preliminary and upon auditing coder review may be revised to meet current compliance requirements. Devin Tilley MD 09/10/2023 11:26:38 AM This report has been signed electronically. Number of Addenda: 0 Note Initiated On: 09/10/2023 10:48 AM
--- NOTE | 2023-09-10 11:27 | OP.CCLET_ITS ---
09/10/2023 Quinten Thacker MD [address] [place] [address] Re : Upper GI endoscopy procedure for Nidhi Huang Dear Dr. Thacker This procedure was performed on Sunday, September 10, 2023. My impressions and recommendations are as follows: Impressions : - Normal esophagus. - Normal stomach. - Normal examined duodenum. - No specimens collected. Recommendations : - Discharge patient to home. - Resume previous diet. - Continue present medications. My findings are described in the full procedure note, which is enclosed. If I can be of further assistance, please feel free to contact me at Doctor phone number(s): , Work: . Sincerely, Devin Tilley MD 09/10/2023 11:26:38 AM This report has been signed electronically.
--- NOTE | 2023-09-10 11:28 | OP.COLON_ITS ---
Patient Name: Nidhi Huang Procedure Date: 09/10/2023 11:01 AM Date of : 1940 Age: 82 Procedure: Colonoscopy Indications: Iron deficiency anemia Providers: Devin Tilley MD Medicines: Monitored Anesthesia Care Patient Profile: This is an 82 year old female. Refer to note in patient chart for documentation of history and physical. Last Colonoscopy: 10 years ago. Complications: No immediate complications. Procedure: Pre-Anesthesia Assessment: - Prior to the procedure, a History and Physical was performed, and patient medications and allergies were reviewed. The patient's tolerance of previous anesthesia was also reviewed. The risks and benefits of the procedure and the sedation options and risks were discussed with the patient. All questions were answered, and informed consent was obtained. Prior Anticoagulants: The patient has taken no anticoagulant or antiplatelet agents. After reviewing the risks and benefits, the patient was deemed in satisfactory condition to undergo the procedure. After I obtained informed consent, the scope was passed under direct vision. Throughout the procedure, the patient's blood pressure, pulse, and oxygen saturations were monitored continuously. The Colonoscope was introduced through the anus and advanced to the cecum, identified by appendiceal orifice and ileocecal valve. The colonoscopy was performed without difficulty. The patient tolerated the procedure well. The quality of the bowel preparation was good. The ileocecal valve, appendiceal orifice, and rectum were photographed. Scope In: 11:05:15 AM Scope Withdrawal Time 0 hours 6 minutes 6 seconds Scope Out: 11:26:22 AM Total Procedure Duration Time 0 hours 21 minutes 7 seconds Findings: The entire examined colon appeared normal on direct and retroflexion views. Multiple small-mouthed diverticula were found in the sigmoid colon and descending colon. Impression: - The entire examined colon is normal on direct and retroflexion views. - No specimens collected. Recommendation: - Discharge patient to home. - Resume previous diet. - Continue present medications. - Repeat colonoscopy is not recommended due to current age (66 years or older) for screening purposes. Procedure Code(s): --- Professional --- 64229, Colonoscopy, flexible; diagnostic, including collection of specimen(s) by brushing or washing, when performed (separate procedure) Diagnosis Code(s): --- Professional --- D50.9, Iron deficiency anemia, unspecified CPT copyright 2021 [employer]. All rights reserved. The codes documented in this report are preliminary and upon drug safety data management specialist review may be revised to meet current compliance requirements. Devin Tilley MD 09/10/2023 11:28:19 AM This report has been signed electronically. Number of Addenda: 0 Note Initiated On: 09/10/2023 11:01 AM
--- NOTE | 2023-09-10 11:28 | OP.CCLET_ITS ---
09/10/2023 Quinten Thacker MD [address] [place] [address] Re : Colonoscopy procedure for Nidhi Huang Dear Dr. Thacker This procedure was performed on Sunday, September 10, 2023. My impressions and recommendations are as follows: Impressions : - The entire examined colon is normal on direct and retroflexion views. - No specimens collected. Recommendations : - Discharge patient to home. - Resume previous diet. - Continue present medications. - Repeat colonoscopy is not recommended due to current age (66 years or older) for screening purposes. My findings are described in the full procedure note, which is enclosed. If I can be of further assistance, please feel free to contact me at Doctor phone number(s): , Work: . Sincerely, Devin Tilley MD 09/10/2023 11:28:19 AM This report has been signed electronically.
[2023-09-10 11:32] VITALS: BP 123/71; BP 97/52; PULSE 86; RESP 16; TEMP 36.7; O2SAT 99
[2023-09-10 11:35] VITALS: BP 123/71; BP 98/51; PULSE 76; RESP 16; O2SAT 95
[2023-09-10 11:40] VITALS: BP 108/65; BP 123/71; PULSE 71; RESP 16; O2SAT 96
[2023-09-10 11:45] VITALS: BP 118/60; BP 123/71; PULSE 69; RESP 16; TEMP 36.6; O2SAT 95
[2023-09-10 12:01] VITALS: BP 123/71
== END 2023-09-10 12:23 | disposition home or self-care (01) ==
LOC: EN 09:28 → AC 09:30
PROVIDERS: PCP Family Medicine Geriatric Medicine; Referring Provider Family Medicine Geriatric Medicine; Visit Provider Surgery
PROC: 0DJD8ZZ Inspection of Lower Intestinal Tract, Via Natural or Artificial Opening Endoscopic (ICD-10-PCS; CPT 45378; principal; 2023-09-10 10:40)
DX: D50.9 Iron deficiency anemia, unspecified (principal); J44.9 Chronic obstructive pulmonary disease, unspecified; Z87.891 Personal history of nicotine dependence; I10 Essential (primary) hypertension; Z79.82 Long term (current) use of aspirin
CPT/HCPCS: 43235; 45378; J7120; J2405

== ENCOUNTER 2023-10-18 19:53 | Emergency (ER) | payer MEDICARE, BC, SELFPAY ==
[2023-10-18 19:54] VITALS: BP 152/62; PULSE 69; RESP 18; TEMP 36.2; O2SAT 95; BMI 23.3
--- NOTE | 2023-10-18 20:02 | EKG12_ITS ---
Test Reason : CP Blood Pressure : / mmHG Vent. Rate : 067 BPM Atrial Rate : 067 BPM P-R Int : 184 ms QRS Dur : 072 ms QT Int : 382 ms P-R-T Axes : 067 018 037 degrees QTc Int : 403 ms Normal sinus rhythm Normal ECG Confirmed by YOLANDA LOCKHART, TYRESE ([id number]), news assignment editor CARON SOLARES ([id number]) on 10/20/2023 9:18:45 AM Referred By: Confirmed By:TYRESE GUERRERO MD
--- OUTSIDE RECORDS SUMMARY | 2023-10-18 20:16 | XMS RPT_ITS | CCD ---
Author Name Unknown Address [address] [place] [address] Organization [facility] Care Team Providers Care Plant Floor Automation Manager Name Role Phone MD Zoey, Jalil Nash Unavailable Kerry Barney Unavailable Peng RAE Sola A Unavailable Unavailab Salome Robert Unavailable Unavailable Magnolia Peterson CNP Unavailable FELIX SMALLS Unavailable Unavailable MAGDALENO LAMB (MATRIX WORKER) Unavailable Unavailable Marvin WELCOME HOSTESS, Salomejennifer Garciain Unavailable Unavaila ble Marvin WELCOME HOSTESS, Salome Becky Unavailable Unavaila ble Salome Diggs Unavailable Unavailable Aprli MCKEON, Caterina Martinez Unavailable Unavailable Lane Tomlinson Unavailable Unavailable Allergies Allergy Classification Reported Allergen(s) Allergy Type Date of Onset Reaction(s) Facility (1 source) Bee; Translations: [BEES] Propensity to adverse reactions (disorder) 2 AOF [facility] Repository Medications Completed/Discontinued Medications Medication Drug Class(es) Dates Sig (Normalized) Sig (Original) 200 actuat albuterol 0.09 mg/actuat metered dose inhaler (9 sources) beta2-Adrenergic Agonist Start: 05-16-2017 take 1-2 puff(s) by inhalation every four hours as needed PROAIR HFA 108 (90 Base) MCG/ACT AERS 1-2 puffs inh every 4 hrs as needed ALBUTEROL SULFATE [id number] Salome Diggs Problems Active Problems Problem Classification Problem Date Documented Da te Episodic/Chronic Cardiac dysrhythmias (8 sources) Atrial fibrillation; Translations: [Unspecified atrial fibrillation] Onset: 05-27-2017 05-27-2017 Chronic Chronic obstructive pulmonary disease and bronchiectasis (8 sources) Chronic obstructive lung disease; Translations: [Chronic obstructive pulmonary disease, unspecified] Onset: 05-27-2017 05-27-2017 Chronic Heart valve disorders (6 sources) Nonrheumatic tricuspid (valve) insufficiency; Translations: [Nonrheumatic tricuspid (valve) insufficiency] Onset: 06-05-2017 06-05-2017 Chronic Other screening for suspected conditions (not mental disorders or infectious disease) (2 sources) No current problems or disability 05-19-2017 Pulmonary heart disease (8 sources) Pulmonary hypertension; Translations: [Other secondary pulmonary hypertension] Onset: 05-27-2017 05-27-2017 Chronic Screening or history of mental health and substance abuse (8 sources) Tobacco dependence in remission; Translations: [Nicotine dependence, unspecified, in remission] Onset: 05-27-2017 05-27-2017 Chronic Unclassified (3 sources) Home oxygen therapy; Translations: [Dependence on supplemental oxygen] Onset: 07-09-2017 07-09-2017 Past or Other Problems Problem Classification Problem Date Documented Da te Episodic/Chronic Other circulatory disease (8 sources) Diastolic dysfunction; Translations: [Heart disease, unspecified] Onset: 05-27-2017 05-27-2017 Episodic Results Test Name Value Interpretation Reference Range Facil ity Vital Signs Date Time Vital Sign Value Performing Clinician Faci jany 07-09-2017 07:10-0400 BMI (Body Mass Index) 20.8 kg/m2 Salome Marvin LPN [facility] Work Phone: 07-09-2017 07:10-0400 Body Temperature 96.8 [degF] Salome Marvin LPN [facility] Work Phone: 07-09-2017 07:10-0400 BP Diastolic 70 mm[Hg] Salome Marvin LPN [facility] Work Phone: 07-09-2017 07:10-0400 BP Systolic 119 mm[Hg] Salome Marvin LPN [facility] Work Phone: 07-09-2017 07:10-0400 Height 165.1 cm Salome Marvin LPN [facility] Work Phone: 07-09-2017 07:10-0400 Pulse (Heart Rate) 51 /min Salome Marvin LPN [facility] Work Phone: 07-09-2017 07:10-0400 Respiratory Rate 18 /min Salome Marvin LPN [facility] Work Phone: 07-09-2017 07:10-0400 Weight 56.7 kg Salome Marvin LPN [facility] Work Phone: 06-09-2017 11:34-0400 BMI (Body Mass Index) 19.97 kg/m2 [facility] Work Phone: 06-09-2017 11:34-0400 BP Diastolic 60 mm[Hg] [facility] Work Phone: 06-09-2017 11:34-0400 BP Systolic 100 mm[Hg] [facility] Work Phone: 06-09-2017 11:34-[address] [facility] Work Phone: 06-09-2017 11:34-0400 Pulse (Heart Rate) 56 /min [facility] Work Phone: 06-09-2017 11:34-0400 Respiratory Rate 20 /min [facility] Work Phone: 06-09-2017 11:34-[address] [facility] Work Phone: 05-27-2017 06:29-0400 BMI (Body Mass Index) 19.97 kg/m2 Sola Khoury LPN [facility] Work Phone: 05-27-2017 06:29-0400 Body Temperature 98.1 [degF] Sola Khoury LPN [facility] Work Phone: 05-27-2017 06:29-0400 BP Diastolic 71 mm[Hg] Sola Yensho WELCOME HOSTESS [facility] Work Phone: 05-27-2017 06:29-0400 BP Systolic 114 mm[Hg] Sola Yensho WELCOME HOSTESS [facility] Work Phone: 05-27-2017 06:29-0400 Height 165.1 cm Sola Yensho WELCOME HOSTESS [facility] Work Phone: 05-27-2017 06:29-0400 Inhaled O2 3 Sola Yensho WELCOME HOSTESS [facility] Work Phone: 05-27-2017 06:29-0400 Pulse (Heart Rate) 75 /min Sola Yensho WELCOME HOSTESS [facility] Work Phone: 05-27-2017 06:29-0400 Respiratory Rate 18 /min Sola Yensho WELCOME HOSTESS [facility] Work Phone: 05-27-2017 06:29-0400 Weight 54.43 kg Sola Yensho WELCOME HOSTESS [facility] Work Phone: Encounters Encounter Date Encounter Type Care Provider Facility Start: 05-07-2017 End: 05-07-2017 Ambulatory MAGDALENO LAMB [facility] Start: 04-08-2017 End: 04-08-2017 Ambulatory FELIX SMALLS [facility] Plan of Treatment Date Care Activity Detail Author Start: 12-22-2017 End: 12-22-2017 Appointment Appointment [facility] Work Phone: Start: 07-09-2017 End: 07-09-2017 DMB DMB [facility] Work Phone: Start: 07-09-2017 End: 07-09-2017 Follow Up Appt 1 year Follow Up Appt 1 year [facility] Work Phone: Start: 07-09-2017 End: 07-09-2017 Appointment Appointment [facility] Work Phone: Start: 06-09-2017 End: 06-09-2017 Follow Up Appt 6 months Follow Up Appt 6 months [facility] Work Phone: Start: 06-09-2017 End: 06-09-2017 KARUNA BECKMAN [facility] Work Phone: Start: 06-09-2017 End: 06-09-2017 Appointment Appointment [facility] Work Phone: Start: 06-09-2017 End: 06-09-2017 Follow Up Appt 6 months Follow Up Appt 6 months [facility] Work Phone: Start: 06-09-2017 End: 06-09-2017 KARUNA BECKMAN [facility] Work Phone: Start: 05-27-2017 End: 05-27-2017 Appointment Appointment [facility] Work Phone: Start: 05-27-2017 End: 05-27-2017 OLINDA PRAKASH [facility] Work Phone: Start: 05-27-2017 End: 05-27-2017 Follow Up Appt 6 weeks Follow Up Appt 6 weeks [facility] Work Phone: Start: 05-27-2017 End: 05-27-2017 Pulmonary Function Test - complete Pulmonary Function Test - complete [facility] Work Phone: Start: 05-27-2017 End: 05-27-2017 Pulmonary stress test/simple Pulmonary stress testing; simple (eg, 6-minute walk) [facility] Work Phone: Start: 05-27-2017 End: 05-27-2017 OLINDA PRAKASH [facility] Work Phone: Start: 05-27-2017 End: 05-27-2017 Follow Up Appt 6 weeks Follow Up Appt 6 weeks [facility] Work Phone: Start: 05-27-2017 End: 05-27-2017 Pulmonary Function Test - complete Pulmonary Function Test - complete [facility] Work Phone: Start: 05-27-2017 End: 05-27-2017 Pulmonary stress test/simple Pulmonary stress testing; simple (eg, 6-minute walk) [facility] Work Phone: Summary Purpose Family History No Family History Records Found Advance Directives No Advanced Directives Records Found Additional Source Comments INFORMATION SOURCE (unrecogn ized section and content) FOR RECORDS PERTAINING TO PATIENTS WHO ARE OR HAVE BEEN ENROLLED IN A CHEMICAL DEPENDENCY/SUBSTANCEABUSE PROGRAM, SOME INFORMATION MAY BE OMITTED. This clinical summary was aggregated from multiple sources. Caution should be exercised in using it in the provision of clinical care. This summary normalizes information from multiple sources, and as a consequence, information in this document may materially change the coding, format and clinical context of patient data. In addition, data may be omitted in some cases. CLINICAL DECISIONS SHOULD BE BASED ON THE PRIMARY CLINICAL RECORDS. [employer] provides no warranty or guarantee of the accuracy or completeness of information in this document.
--- NOTE | 2023-10-18 20:30 | RAD_ITS ---
STUDY: X-RAY CHEST REASON FOR EXAM: Female, 82 years old. chest pain TECHNIQUE: Single AP portable view of the chest. COMPARISON: 05/13/2017. FINDINGS: The lungs are clear and expanded. There is no demonstrated pleural abnormality. There is mild cardiac enlargement. Normal mediastinum and yessenia. Normal visualized pulmonary arteries. There is atherosclerotic calcification of the aortic arch with tortuosity. Scoliosis of thoracic spine with convexity to the left. The tip disease of the thoracic spine and bilateral shoulders. Possible osteopenia. There is no demonstrated abnormality of the visualized soft tissue structures of the upper abdomen. RAD/Chest 1 View (Portable) IMPRESSION: No acute cardiopulmonary disease. Electronically Signed: Shira Fontanez MD at 20:54 EST ,
[2023-10-18 20:33] LABS: Absolute Lymphocyte Count 1.06 X10^3/uL (0.83-4.51); Absolute Neutrophil Count 4.7 X10^3/uL (2.0-7.7); Basophil# 0.04 X10^3/uL; Basophil% 0.6 % (0-1); Eosinophil# 0.11 X10^3/uL; Eosinophils% 1.7 % (0-5); Hematocrit 39.3 % (37-47); Hemoglobin 12.1 g/dL (12.0-15.0); Lymphocyte # 1.06 X10^3/ul (0.83-4.51); Mean Corp Hgb Conc 30.8 g/dL (32-36); Mean Corpuscular Hgb 27.8 pg (27.0-32.0); Mean Corpuscular Volume 90.1 fL (81-99); Mean Platelet Vol. 10.8 fl (6.2-12.0); Monocyte# 0.71 X10^3/uL; Monocyte% 10.7 % (0-10); NRBC Flagged by Analyzer 0 % (0-5); Neutrophil # 4.68 X10^3/uL (2.7-7.7); Neutrophil % 70.7 % (47-70); Platelet Count 266 K/mm3 (150-450); RBC Distribution Width CV 17.9 % (11.6-14.6); RBC Distribution Width SD 59.6 fl (35.1-43.9); Red Blood Count 4.36 M/mm3 (4.2-5.4); White Blood Count 6.6 K/mm3 (4.4-11.0)
[2023-10-18 20:55] LABS: Anion Gap 5 (5-15); BUN 19 mg/dL (7-18); BUN/Creat Ratio 22.2 RATIO (10-20); Calcium,Total 8.8 mg/dL (8.5-10.1); Chloride 106 mmol/L (98-107); Creatinine, Serum 0.86 mg/dL (0.55-1.02); EST Glomerular Filtration Rate 67 mL/min (>60); Est Glom Filt Rate - Afr Amer 81 mL/min (>60); Glucose 101 mg/dL (74-106); Potassium 4.4 mmol/L (3.5-5.1); Sodium Level 141 mmol/L (136-145); Troponin-I HS (w/2H Reflex) 6 pg/mL (3.0-54.0)
[2023-10-18 21:00] VITALS: RESP 20
[2023-10-18 22:00] VITALS: RESP 22
[2023-10-18 22:30] LABS: Reflex Troponin-HS? (from REC) Y
[2023-10-18 22:58] LABS: Troponin-I HS 7 pg/mL (3.0-54.0)
[2023-10-18 23:00] VITALS: BP 134/75; PULSE 67; RESP 22; O2SAT 93
--- NOTE | 2023-10-18 23:13 | ED.VIS.CHEST ---
HPI History of Present Illness Chief Complaint: Palpitations [facility] Medical History (Updated 10/18/23 @ 23:[address] Otilio Landers, DO) Atrial fibrillation with rapid ventricular response (05/2017) Cardiology follow-up encounter Contact dermatitis COPD (chronic obstructive pulmonary disease) Diastolic dysfunction Former smoker History of atrial fibrillation History of echocardiogram Hoarseness Hypoxia Leg cramps Nonrheumatic tricuspid (valve) insufficiency Pneumonia Post-menopausal Secondary pulmonary arterial hypertension Sepsis Wears dentures Wears glasses Home Medications aspirin 81 mg tablet,delayed release (Montse Low Dose Aspirin) 81 mg PO DAILY 06/06/20 [History Last Taken 09/10/23] metoprolol tartrate 50 mg tablet 50 mg PO BID #180 tabs 04/29/23 [Rx Last Taken Unknown] mv-mn-folic 200 mcg-vit K 15 mcg-lutein 5 mg-zeaxanthin 1 mg capsule (PreserVision AREDS 2 Plus Multivit) 1 cap PO BID 07/28/23 [History Last Taken Unknown] Allergy/AdvReac Type Severity Reaction Status Date / Time bee venom protein (honey bee) Allergy Anaphylaxis Verified 10/18/23 19:54 Family History Mother Heart disease Brother CAD (coronary artery disease) Surgical History (Updated 09/08/23 @ 10:50 by Darlene Duong) History of cataract surgery Hx of left cataract extraction Social History Smoking Status: Former smoker how long ago did patient quit smokin alcohol intake: current alcohol intake frequency: holidays/special occasions only Alcohol type: wine substance use type: does not use caffeine: No what type of physical activity do you participate in: walking frequency: 3-4 times per week duration: 30-45 minutes/day seatbelt use: always do you feel safe at home: Yes EXAM Physical Exam Const Vital Signs: 10/18/23 19:54 10/18/23 20:31 10/18/23 20:31 Temperature 97.1 F L Temperature Source Temporal Pulse Rate 69 Respiratory Rate 18 Respiratory Effort Normal Non-Labored Blood Pressure 152/62 H Blood Pressure Mean 92 Pulse Ox 95 Oxygen Delivery Method Room Air Room Air 10/18/23 21:00 10/18/23 22:00 10/18/23 23:00 Temperature Temperature Source Pulse Rate 67 Respiratory Rate 20 H 22 H 22 H Respiratory Effort Blood Pressure 134/75 H Blood Pressure Mean 94 Pulse Ox 93 Oxygen Delivery Method Room Air 10/18/23 23:26 Temperature Temperature Source Pulse Rate 69 Respiratory Rate 15 Respiratory Effort Blood Pressure 136/75 H Blood Pressure Mean 95 Pulse Ox 97 Oxygen Delivery Method [facility] Narrative Medical decision making narrative: HISTORY OF PRESENT ILLNESS: 82-year-old female presents with intermittent palpitations left-sided chest pain. States chest pain is not currently there however approximately 6 hours prior to offset pain of her left breast. She states the pain is not exertional it is not pressure-like. It is sharp. It is not worse with a deep breath. The patient denies recent surgery in the last 4 weeks or immobilization in the last 3 days, denies previous diagnosis of DVT or PE, hemoptysis, unilateral leg swelling or malignancy with treatment the last 6 months or palliative. No estrogen use noted. Patient denies sudden onset of pain, no tearing sensation, no migratory symptoms, no new numbness, weakness or loss of sensation. Patient denies family history or personal history of Connective tissue disorders (Marfan's Syndrome, Kaylee Danlos etc) REVIEW OF SYSTEMS: Pertinent positives: Chest pain, palpitations Pertinent negatives: Focal weakness, headache, neck pain, syncope, bleeding diathesis, vomiting, nausea, abdominal PHYSICAL EXAM: Nursing triage notes reviewed, Vital signs reviewed Constitutional: please see mdm HENT: MMM Eyes: Pupils equal round and reactive to light, Extraocular muscles intact Neck: No stridor, no JVD, full neck ROM Lungs: Clear to auscultation, No wheezing or rales. No increased work of breathing, no conversational dyspnea, no accessory muscle use, no nasal flaring. No respiratory distress noted Heart: Regular rate and rhythm, No murmurs, No rubs and No gallops, 2+ distal pulses (radial, femoral, posterior tibial) in all extremities Abdomen: Soft, there is no tenderness, rigidity, rebound or guarding, no obvious peritoneal signs, no palpable pulsatile abdominal masses, no auscultated abdominal bruit : No CVAT Extremities: No edema Neuro: No focal neurological deficits, cranial nerves II through XII intact, 5/5 strength in all extremities. Intact sensation to light touch in all extremities, 2+ reflexes bilateral patella tendons. Normal gait. No ataxia. Skin: No rash or lesions noted MEDICAL DECISION MAKING: Chief Complaint: Palpitations, chest pain External records reviewed: No recent cardiac catheterizations or stress test noted in the chart Factors affecting care: Anemia, A-fib, COPD, pulmonary artery hypertension Social determinants of health: none History obtained from others: Patient's daughters Consults: none MDM Narrative: Patient was hemodynamically stable, afebrile, nontoxic-appearing I considered the following differential diagnosis: Arrhythmia, anemia, ACS, PE, dissection I obtained a broad lab and imaging workup to further elucidate etiology patient complaints. No history physical exam findings to suggest PE or dissection. There is low risk Wells score making PE less likely. No ripping or tearing pain, pulse deficits no focal neurologic deficits to suggest dissection ALL IMAGES (IF OBTAINED) HAVE BEEN PERSONALLY REVIEWED AND INTERPRETED BY MYSELF. EKG with normal sinus rhythm, normal axis, no intervals, no STEMI CBC without leukocytosis, severe anemia, no thrombocytopenia. BMP without evidence of significant electrolyte abnormalities, no anion gap, no acute kidney injury. High-sensitivity troponin is negative, no evidence of myocardial ischemia x2 The synthesis of the patient's history, physical exam, labs, evaluation suggest no acute life-threatening process. Recommended Holter monitoring and close outpatient follow-up. Strict return precautions were discussed. The patient and/or family, caregivers express understanding. The patient and/or family, caregivers agrees with the plan. Shared decision making: I will have a discussion with the patient and or visitors regarding risk/benefits of further testing or admission. They will be made aware of of the risk/benefits inherent in this decision they will be given the opportunity to voice understanding. Total critical care time today provided was at least 0 minutes. This excludes separately billable procedures. Critical care time (if documented) is secondary to the patient having high probability of clinically significant/life threatening deterioration in the patient's condition which required my urgent intervention. Impression: 1. Palpitations 2. Chest pain Dispo: discharge Lab Data Labs: Laboratory Results - last 24 hr 10/18/23 10/18/23 20:25 22:32 WBC 6.6 RBC 4.36 Hgb 12.1 Hct 39.3 MCV 90.1 MCH 27.8 MCHC 30.8 L RDW Std Deviation 59.6 H RDW Coeff of Lorne 17.9 H Plt Count 266 MPV 10.8 Immature Gran % (Auto) 0.300 Neut % (Auto) 70.7 H Lymph % (Auto) 16.0 L [place] % (Auto) 10.7 H Eos % (Auto) 1.7 Baso % (Auto) 0.6 Absolute Neuts (auto) 4.7 Absolute Lymphs (auto) 1.06 Nucleated RBC % 0 Sodium 141 Potassium 4.4 Chloride 106 Carbon Dioxide 30.0 Anion Gap 5 BUN 19 H Creatinine 0.86 Estim Creat Clear Calc 42.80 Est GFR (MDRD) Af Amer 81 Est GFR (MDRD) Non-Af 67 BUN/Creatinine Ratio 22.2 H Glucose 101 Calcium 8.8 Troponin I High Sens 6 7 Radiography Diagnostic Testing: Clinical Impression(s) from Imaging Studies Chest X-Ray 10/18/23 20:30 IMPRESSION: No acute cardiopulmonary disease. Electronically Signed: Shira Fontanez MD at 20:54 EST Reading Location ID and State: [address] [place] [address] , Service support , Discharge Plan Triage Chief Complaint: Palpitations Other Complaint: Chest Pain ED Provider: Otilio Landers Dx/Rx/DC Orders Clinical Impression: Chest pain Instructions: ED Palpitations, Chest Pain [facility] Prescriptions: No Action aspirin [Montse Low Dose Aspirin] 81 mg tablet,delayed release (DR/EC) 81 mg PO DAILY PreserVision AREDS 2 Plus MV 200 mcg-15 mcg- 5 mg-1 mg capsule 1 cap PO BID metoprolol tartrate 50 mg tablet 50 mg PO BID Qty: 180 3RF Primary Care Provider: Quinten Thacker Chi Referrals: Quinten Thacker Chi, MD [Primary Care Provider] - Activity Restrictions/Additional Instructions: Thank you for trusting us with your care today! Please take Tylenol (2 pills, 650 mg), ibuprofen (2 pills, 400 mg) every 6 hours as needed for pain and fever control. Please return to the emergency department if your symptoms change or worsen. Please follow with your primary care physician for further outpatient evaluation and management. Specifically for Holter monitoring to observe your heart rhythm over a longer period of time. Disposition Disposition: Home, Self Care Discharge Date/Time: 10/18/23 23:27 Capacity Legal Carbonation Equipment Tender Reflex Medical hold order details:: IF a medical hold is selected below, a suggested order for a MEDICAL HOLD will reflex upon signing the document. Next of kin: [place] law dictates a PRIORITY LIST for identifying legal decision-maker/legal next of kin in the following order (LNOK): 1st: The patient?s legal guardian, if any 2nd: The patient's spouse (if status is questionable, consult Risk Management) 3rd: The patient?s adult child(michael) (majority, if multiple children) 4th: The patient?s parents 5th: The patient?s adult siblings (majority, if multiple children siblings)
[2023-10-18 23:26] VITALS: BP 136/75; PULSE 69; RESP 15; O2SAT 97
== END 2023-10-18 23:27 | disposition home or self-care (01) ==
PROVIDERS: Emergency Provider Emergency Medicine; PCP Family Medicine Geriatric Medicine; Visit Provider Emergency Medicine
DX: R00.2 Palpitations (principal); J44.9 Chronic obstructive pulmonary disease, unspecified; I48.91 Unspecified atrial fibrillation; Z87.891 Personal history of nicotine dependence; I10 Essential (primary) hypertension; Z79.82 Long term (current) use of aspirin; Z79.899 Other long term (current) drug therapy; R07.9 Chest pain, unspecified
CPT/HCPCS: 71045; 80048; 84484; 85025; 93005; 99284; A4216

== ENCOUNTER → 2023-10-21 | Outpatient (CLI) | payer MEDICARE, BC, SELFPAY ==
--- NOTE | 2023-10-21 12:03 | EKG12_ITS ---
Test Reason : A FIB Blood Pressure : / mmHG Vent. Rate : 059 BPM Atrial Rate : 059 BPM P-R Int : 180 ms QRS Dur : 074 ms QT Int : 396 ms P-R-T Axes : 106 045 070 degrees QTc Int : 392 ms Sinus bradycardia with marked sinus arrhythmia Otherwise normal ECG Confirmed by YOLANDA LOCKHART, TYRESE ([id number]), subeditor CARON SOLARES ([id number]) on 10/22/2023 7:53:35 AM Referred By: Quinten Thacker Confirmed By:TYRESE GUERRERO MD
[2023-10-21 12:34] LABS: Troponin-I HS 6 pg/mL (3.0-54.0)
== END | disposition home or self-care (01) ==
PROVIDERS: PCP Family Medicine Geriatric Medicine; Referring Provider Family Medicine Geriatric Medicine; Visit Provider Family Medicine Geriatric Medicine
DX: R07.9 Chest pain, unspecified (principal)
CPT/HCPCS: 36415; 84484; 93005

== ENCOUNTER → 2023-12-15 | Outpatient (CLI) | payer MEDICARE, BC, SELFPAY ==
[2023-12-15 12:46] LABS: Absolute Lymphocyte Count 0.46 X10^3/uL (0.83-4.51); Absolute Neutrophil Count 3.1 X10^3/uL (2.0-7.7); Basophil# 0.01 X10^3/uL; Basophil% 0.2 % (0-1); Hemoglobin 12.7 g/dL (12.0-15.0); Lymphocyte # 0.46 X10^3/ul (0.83-4.51); Lymphocyte % 10.3 % (19-41); Mean Corp Hgb Conc 31.8 g/dL (32-36); Mean Corpuscular Volume 91.3 fL (81-99); Mean Platelet Vol. 11.9 fl (6.2-12.0); Monocyte# 0.89 X10^3/uL; NRBC Flagged by Analyzer 0 % (0-5); Neutrophil # 3.09 X10^3/uL (2.7-7.7); Neutrophil % 69.3 % (47-70); POSITIVE DIFFERENTIAL YES; Platelet Count 201 K/mm3 (150-450); RBC Distribution Width CV 17.6 % (11.6-14.6); RBC Distribution Width SD 59.6 fl (35.1-43.9); Red Blood Count 4.38 M/mm3 (4.2-5.4); White Blood Count 4.5 K/mm3 (4.4-11.0)
[2023-12-15 13:13] LABS: Vitamin D,25 Hydroxy 24.7 ng/mL
[2023-12-15 13:33] LABS: ALB/GLOB Ratio 0.8 RATIO (0.9-2.4); AST(SGOT) 29 U/L (15-37); Alanine Aminotransfer ALT/SGPT 23 U/L (13-56); Albumin, Serum 3.1 g/dL (3.2-5.0); Alkaline Phosphatase 87 U/L (45-117); Anion Gap 9 (5-15); BUN 18 mg/dL (7-18); Calcium,Total 8.5 mg/dL (8.5-10.1); Chloride 98 mmol/L (98-107); Creatinine, Serum 1.06 mg/dL (0.55-1.02); EST Glomerular Filtration Rate 53 mL/min (>60); Est Glom Filt Rate - Afr Amer 64 mL/min (>60); Glucose 110 mg/dL (74-106); Potassium 4.1 mmol/L (3.5-5.1); Protein, Total 7.1 g/dL (6.4-8.2); Sodium Level 134 mmol/L (136-145); Thyroid Stim Hormone (TSH) 2.74 uIU/mL (0.358-3.74)
--- OUTSIDE RECORDS SUMMARY | 2023-12-15 20:15 | XMS RPT_ITS | CCD ---
Author Name Unknown Address [address] [place] [address] Organization [facility] Care Team Providers Care Drug Abuse Worker Name Role Phone MD Zoey, Jalil Nash Unavailable Kerry Barney Unavailable Peng RAE Sola A Unavailable Unavailab Salome Robert Unavailable Unavailable Magnolia Peterson CNP Unavailable FELIX SMALLS Unavailable Unavailable MAGDALENO LAMB (PLANT TECHNICIAN) Unavailable Unavailable Marvin NET DEVELOPER CONSULTANT, Salome Garciain Unavailable Unavaila ble Marvin NET DEVELOPER CONSULTANT, Salome Becky Unavailable Unavaila ble Salome Diggs Unavailable Unavailable April MCKEON, Caterina Martinez Unavailable Unavailable Lane Tomlinson Unavailable Unavailable Allergies Allergy Classification Reported Allergen(s) Allergy Type Date of Onset Reaction(s) Facility (1 source) Bee; Translations: [BEES] Propensity to adverse reactions (disorder) 2 AOF [facility] Repository Medications Completed/Discontinued Medications Medication Drug Class(es) Dates Sig (Normalized) Sig (Original) 200 actuat albuterol 0.09 mg/actuat metered dose inhaler (9 sources) beta2-Adrenergic Agonist Start: 05-16-2017 take 1-2 puff(s) by inhalation every four hours as needed PROAIR HFA 108 (90 Base) MCG/ACT AERS 1-2 puffs inh every 4 hrs as needed ALBUTEROL SULFATE [id number] Salome Diggs Problems Active Problems Problem Classification [...] Salome Marvin LPN [facility] Work Phone: 07-09-2017 07:10-0400 Body Temperature 96.8 [degF] Salome Marvin LPN [facility] Work Phone: 07-09-2017 07:10-0400 BP Diastolic 70 mm[Hg] Salome Marvin LPN [facility] Work Phone: 07-09-2017 07:10-0400 BP Systolic 119 mm[Hg] Salome Marvin LPN [facility] Work Phone: 07-09-2017 07:10-0400 Height 165.1 cm Salome Marvin LPN [facility] Work Phone: 07-09-2017 07:10-0400 Pulse (Heart Rate) 51 /min Salome Marvin LPN [facility] Work Phone: 07-09-2017 07:10-0400 Respiratory Rate 18 /min Salome Marvin LPN [facility] Work Phone: 07-09-2017 07:10-0400 Weight 56.7 kg Salome Marvin LPN [facility] Work Phone: 06-09-2017 11:34-0400 BMI (Body Mass [...] Sola Khoury LPN [facility] Work Phone: 05-27-2017 06:29-0400 Body Temperature 98.1 [degF] Sola Khoury LPN [facility] Work Phone: 05-27-2017 06:29-0400 BP Diastolic 71 mm[Hg] Sola Yensho NET DEVELOPER CONSULTANT [facility] Work Phone: 05-27-2017 06:29-0400 BP Systolic 114 mm[Hg] Sola Yensho NET DEVELOPER CONSULTANT [facility] Work Phone: 05-27-2017 06:29-0400 Height 165.1 cm Sola Yensho NET DEVELOPER CONSULTANT [facility] Work Phone: 05-27-2017 06:29-0400 Inhaled O2 3 Sola Yensho NET DEVELOPER CONSULTANT [facility] Work Phone: 05-27-2017 06:29-0400 Pulse (Heart Rate) 75 /min Sola Yensho NET DEVELOPER CONSULTANT [facility] Work Phone: 05-27-2017 06:29-0400 Respiratory Rate 18 /min Sola Yensho NET DEVELOPER CONSULTANT [facility] Work Phone: 05-27-2017 06:29-0400 Weight 54.43 kg Sola Yensho NET DEVELOPER CONSULTANT [facility] Work Phone: Encounters Encounter Date Encounter Type Care Provider Facility Start: 05-07-2017 End: 05-07-2017 Ambulatory MAGDALENO LAMB [facility] Start: 04-08-2017 End: 04-08-2017 Ambulatory FELIX SMALLS [facility] Plan of Treatment Date Care Activity Detail Author Start: 12-22-2017 End: 12-22-2017 Appointment Appointment [facility] Work Phone: Start: 07-09-2017 End: 07-09-2017 DMB D[facility] Work Phone: Start: 07-09-2017 End: 07-09-2017 Follow Up Appt 1 year Follow Up Appt 1 year [facility] Work Phone: Start: 07-09-2017 End: 07-09-2017 Appointment Appointment [facility] Work Phone: Start: 06-09-2017 End: 06-09-2017 Follow Up Appt 6 months Follow Up Appt 6 months [facility] Work Phone: Start: 06-09-2017 End: 06-09-2017 KARUNA BECKMAN [facility] Work Phone: Start: 06-09-2017 End: 06-09-2017 Appointment Appointment [facility] Work Phone: Start: 06-09-2017 End: 06-09-2017 Follow Up Appt 6 months Follow Up Appt 6 months [facility] Work Phone: Start: 06-09-2017 End: 06-09-2017 KARUNA BECKMAN [facility] Work Phone: Start: 05-27-2017 End: 05-27-2017 Appointment Appointment [facility] Work Phone: Start: 05-27-2017 End: 05-27-2017 OLINDA PRAKASH [facility] Work Phone: Start: 05-27-2017 End: 05-27-2017 Follow Up Appt 6 weeks Follow Up Appt 6 weeks [facility] Work Phone: Start: 05-27-2017 End: 05-27-2017 Pulmonary Function Test - complete Pulmonary Function Test - complete [facility] Work Phone: Start: 05-27-2017 End: 05-27-2017 Pulmonary stress test/simple Pulmonary stress testing; simple (eg, 6-minute walk) [facility] Work Phone: Start: 05-27-2017 End: 05-27-2017 OLINDA PRAKASH [facility] Work Phone: Start: 05-27-2017 End: 05-27-2017 Follow Up Appt 6 weeks Follow Up Appt 6 weeks [facility] Work Phone: Start: 05-27-2017 End: 05-27-2017 Pulmonary Function Test - complete Pulmonary Function Test - complete [facility] Work Phone: Start: 05-27-2017 End: 05-27-2017 Pulmonary stress test/simple Pulmonary stress testing; simple (eg, 6-minute walk) [facility] Work Phone: Summary Purpose Family History No [...] BE BASED ON THE PRIMARY CLINICAL RECORDS. [employer] provides no warranty or guarantee of the accuracy or completeness of information in this document.
== END | disposition home or self-care (01) ==
LOC: POLAB3 11:32
PROVIDERS: PCP Family Medicine Geriatric Medicine; Visit Provider Family Medicine Geriatric Medicine
DX: R53.83 Other fatigue (principal); E55.9 Vitamin D deficiency, unspecified
CPT/HCPCS: 36415; 80053; 82306; 84443; 85025

== ENCOUNTER 2023-12-30 10:08 | Outpatient (CLI) | payer MEDICARE, BC, SELFPAY | END 2023-12-30 23:59 | disposition home or self-care (01) | LOC: PSN 10:08 | PROVIDERS: PCP Family Medicine Geriatric Medicine; Referring Provider Family Medicine Geriatric Medicine; Visit Provider Family Medicine Geriatric Medicine | DX: R68.83 Chills (without fever) (principal) | CPT/HCPCS: 87631 ==

== ENCOUNTER → 2024-06-19 | Outpatient (CLI) | payer MEDICARE, BC, SELFPAY ==
[2024-06-19 12:13] LABS: Absolute Lymphocyte Count 0.73 X10^3/uL (0.83-4.51); Absolute Neutrophil Count 5.1 X10^3/uL (2.0-7.7); Basophil# 0.04 X10^3/uL; Basophil% 0.6 % (0-1); Eosinophil# 0.08 X10^3/uL; Eosinophils% 1.2 % (0-5); Hematocrit 42.1 % (37-47); Lymphocyte # 0.73 X10^3/ul (0.83-4.51); Lymphocyte % 10.8 % (19-41); Mean Corp Hgb Conc 30.9 g/dL (32-36); Mean Corpuscular Hgb 30.4 pg (27.0-32.0); Mean Corpuscular Volume 98.4 fL (81-99); Mean Platelet Vol. 11.1 fl (6.2-12.0); Monocyte# 0.75 X10^3/uL; Monocyte% 11.1 % (0-10); NRBC Flagged by Analyzer 0 % (0-5); Neutrophil # 5.14 X10^3/uL (2.7-7.7); Platelet Count 283 K/mm3 (150-450); RBC Distribution Width CV 15.3 % (11.6-14.6); RBC Distribution Width SD 54.8 fl (35.1-43.9); Red Blood Count 4.28 M/mm3 (4.2-5.4); White Blood Count 6.8 K/mm3 (4.4-11.0)
[2024-06-19 12:29] LABS: Vitamin D,25 Hydroxy 22.4 ng/mL
[2024-06-19 12:44] LABS: ALB/GLOB Ratio 0.8 RATIO (0.9-2.4); AST(SGOT) 14 U/L (15-37); Alanine Aminotransfer ALT/SGPT 15 U/L (13-56); Albumin, Serum 3.1 g/dL (3.2-5.0); Alkaline Phosphatase 94 U/L (45-117); Anion Gap 3 (5-15); BUN 14 mg/dL (7-18); BUN/Creat Ratio 17.5 RATIO (10-20); Calcium,Total 9.3 mg/dL (8.5-10.1); Chloride 103 mmol/L (98-107); EST Glomerular Filtration Rate 73 mL/min (>60); Est Glom Filt Rate - Afr Amer 88 mL/min (>60); Globulin 3.9 g/dL (2.2-4.2); Glucose 87 mg/dL (74-106); Potassium 4.8 mmol/L (3.5-5.1); Sodium Level 138 mmol/L (136-145)
== END | disposition home or self-care (01) ==
LOC: LAB 11:13
PROVIDERS: PCP Family Medicine Geriatric Medicine; Referring Provider Family Medicine Geriatric Medicine; Visit Provider Family Medicine Geriatric Medicine
DX: I10 Essential (primary) hypertension (principal); E55.9 Vitamin D deficiency, unspecified
CPT/HCPCS: 36415; 80053; 82306; 84443; 85025

== ENCOUNTER → 2024-12-27 | Outpatient (CLI) | payer MEDICARE, BC, SELFPAY ==
[2024-12-27 11:27] LABS: Absolute Lymphocyte Count 0.98 X10^3/uL (0.83-4.51); Absolute Neutrophil Count 5.3 X10^3/uL (2.0-7.7); Basophil# 0.04 X10^3/uL; Basophil% 0.5 % (0-1); Eosinophil# 0.09 X10^3/uL; Eosinophils% 1.2 % (0-5); Hematocrit 42.6 % (37-47); Hemoglobin 13.4 g/dL (12.0-15.0); Lymphocyte # 0.98 X10^3/ul (0.83-4.51); Lymphocyte % 13.3 % (19-41); Mean Corp Hgb Conc 31.5 g/dL (32-36); Mean Corpuscular Hgb 30.7 pg (27.0-32.0); Mean Corpuscular Volume 97.7 fL (81-99); Mean Platelet Vol. 11.3 fl (6.2-12.0); Monocyte# 0.96 X10^3/uL; NRBC Flagged by Analyzer 0 % (0-5); Neutrophil # 5.29 X10^3/uL (2.7-7.7); Neutrophil % 71.7 % (47-70); Platelet Count 244 K/mm3 (150-450); RBC Distribution Width CV 15.1 % (11.6-14.6); RBC Distribution Width SD 54.4 fl (35.1-43.9); Red Blood Count 4.36 M/mm3 (4.2-5.4); White Blood Count 7.4 K/mm3 (4.4-11.0)
[2024-12-27 13:31] LABS: ALB/GLOB Ratio 1.3 RATIO (0.9-2.4); AST(SGOT) 20 U/L (<=31); Alanine Aminotransfer ALT/SGPT 10 U/L (<=34); Albumin, Serum 3.9 g/dL (3.4-4.8); Alkaline Phosphatase 92 U/L (35-104); Anion Gap 11 (5-15); BUN 14 mg/dL (4-19); BUN/Creat Ratio 17.7 RATIO (10-20); Calcium,Total 9.1 mg/dL (7.6-11.0); Carbon Dioxide 27.7 mmol/L (21.0-32.0); Chloride 102 mmol/L (98-108); Creatinine, Serum 0.81 mg/dL (0.70-1.20); EST Glomerular Filtration Rate 71 (>60); Glucose 80 mg/dL (70-99); Potassium 3.9 mmol/L (3.3-5.1); Protein, Total 6.9 g/dL (5.9-8.4); Sodium Level 140 mmol/L (133-145); Total Bilirubin 0.47 mg/dL (0.00-1.30)
== END | disposition home or self-care (01) ==
LOC: POLAB3 10:48
PROVIDERS: PCP Family Medicine Geriatric Medicine; Visit Provider Family Medicine Geriatric Medicine
DX: I10 Essential (primary) hypertension (principal); E55.9 Vitamin D deficiency, unspecified
CPT/HCPCS: 36415; 80053; 82306; 84443; 85025

== ENCOUNTER → 2025-06-20 | Outpatient (CLI) | payer MEDICARE, BC, SELFPAY ==
[2025-06-20 10:34] LABS: Hematocrit 41.9 % (37-47); Hemoglobin 13.8 g/dL (12.0-15.0); Immature Granulocytes Count 0.020 X10^3/uL (0.0-0.0); Mean Corp Hgb Conc 32.9 g/dL (32-36); Mean Corpuscular Volume 98.4 fL (81-99); Mean Platelet Vol. 10.9 fl (6.2-12.0); NRBC Flagged by Analyzer 0 % (0-5); Platelet Count 234 K/mm3 (150-450); RBC Distribution Width CV 14.7 % (11.6-14.6); RBC Distribution Width SD 53.8 fl (35.1-43.9); Red Blood Count 4.26 M/mm3 (4.2-5.4); White Blood Count 6.8 K/mm3 (4.4-11.0)
[2025-06-20 11:11] LABS: AST(SGOT) 19 U/L (<=31); Alanine Aminotransfer ALT/SGPT 11 U/L (<=34); Albumin, Serum 3.8 g/dL (3.4-4.8); Alkaline Phosphatase 90 U/L (35-104); Anion Gap 9 (5-15); BUN 15 mg/dL (4-19); BUN/Creat Ratio 17.9 RATIO (10-20); Calcium,Total 9.1 mg/dL (7.6-11.0); Carbon Dioxide 28.9 mmol/L (21.0-32.0); Chloride 102 mmol/L (98-108); Globulin 2.9 g/dL (2.2-4.2); Glucose 104 mg/dL (70-99); Potassium 4.3 mmol/L (3.3-5.1); Vitamin D,25 Hydroxy 13.5 ng/mL (30-100)
[2025-06-20 18:17] LABS: Xtra Tube Kwok EXTRA TUBE
== END | disposition home or self-care (01) ==
PROVIDERS: PCP Family Medicine Geriatric Medicine; Visit Provider Family Medicine Geriatric Medicine
DX: I10 Essential (primary) hypertension (principal); E55.9 Vitamin D deficiency, unspecified
CPT/HCPCS: 36415; 80053; 82306; 84443; 85025